=== PATIENT | male | born 1975 | race Caucasian/White ===

== ENCOUNTER 2018-09-30 15:09 | Emergency (ER) | payer SELFPAY ==
[~2018-09-30] VITALS: Ht 182.8 cm; Wt 90.7 kg
[~2018-09-30 15:09] MED LIST: KEFLEX500 MG PO; PREDNISONE10 MG PO; PRIMATENE0.22 MG/AC IH; PROVENTIL0.09 MG/A1 INH; PROVENTIL0.09 MG/AC IH
[2018-09-30] MEDS ORDERED: TESSALON PERLE100 M1 PO (16:24)
[2018-09-30] MEDS ORDERED: FLONASE ALLERG9.9 ML NAS (16:24)
[2018-09-30] MEDS ORDERED: AUGMENTIN 875875 MG PO (16:24)
== END 2018-09-30 16:25 | disposition home or self-care (01) ==
LOC: ED 15:09
DX: J32.9 Chronic sinusitis, unspecified (principal); Z88.6 Allergy status to analgesic agent